=== PATIENT | female | born 1960 | race African-American/Black ===

== ENCOUNTER 2017-07-19 18:04 | Emergency (ER) | payer OTHER ==
[~2017-07-19] VITALS: Ht 160 cm; Wt 74.8 kg
[2017-07-19] MEDS ORDERED: NKM (18:18)
--- NOTE | 2017-07-19 18:47 | Emergency Room Report ---
History of Present Illness General Chief Complaint: Skin Rash/Abscess Source: Patient Present Illness HPI 56 YO Female presents to the ED c/o Itching, swelling, and erythema of site on the UE's, LE's, and posterior neck and sides of the face since yesterday. no cough, no wheezing. denies Fevers, chills, bleeding, joint pain, fatigue. pt. denies new medications, foods, soaps or detergents. pt. denies hx of allergies. pt. denies blisters or sloughing of the skin. pt. denies swelling of the lips, tongue, or airway. denies wheezing, cough, SOB. Denies CP, Palpitations, N/V, or sudden onset CULVER. Allergies: Coded Allergies: No Known Allergies (Unverified , 07/19/17) Patient History Past Medical History: see triage record Past Surgical History: none Pertinent Family History: none Now: No Immunizations: UTD Reviewed Nursing Documentation: PMH: Agreed, PSxH: Agreed Nursing Documentation-PMH Hx Hypertension: Yes Review of Systems All Other Systems: negative except mentioned in HPI Physical Exam Vital Signs Date Time Temp Pulse Resp B/P (MAP) Pulse Ox O2 Delivery O2 Flow Rate FiO2 07/19/17 18:11 98.1 70 154/67 Room Air Sp02 EP Interpretation: reviewed, normal General Appearance: no apparent distress, alert, GCS 15, non-toxic Head: normocephalic, atraumatic Eyes: bilateral eye normal inspection, bilateral eye PERRL ENT: hearing grossly normal, normal pharynx, no angioedema, normal voice, TMs + canals normal, uvula midline, moist mucus membranes, other - no swelling of the lips or tongue. Neck: full range of motion, supple/symm/no masses Respiratory: lungs clear, normal breath sounds, no wheezing, speaking full sentences Cardiovascular #1: regular rate, rhythm Rectal: deferred Musculoskeletal: back normal, gait/station normal, normal range of motion, non- tender Neurologic: alert, oriented x3, responsive, motor strength/tone normal, sensory intact, normal gait, speech normal Psychiatric: judgement/insight normal, memory normal, mood/affect normal Skin: normal color, warm/dry, well hydrated, rash - mulitple 0.3cm erythematous , indurated insect bites with blanching erythema. no crusting, vessicles, or blisters. Lymphatic: no adenopathy Medical Decision Making PA Attestation Dr. Betancur is my supervising Physician whom patient management has been discussed with. Diagnostic Impression: Primary Impression: Insect bite Qualified Codes: W57.XXXA - Bitten or stung by nonvenomous insect and other nonvenomous arthropods, initial encounter ER Course Pt. presents to the ED c/o Itching, swelling, and erythema of site on the UE's , LE's, and posterior neck and sides of the face since yesterday. no cough, no wheezing. Ddx considered but are not limited to cellulitis, scabies, insect bites, tic bites, spider bites, contact dermatitis, Drug reaction, allergic reaction, fungal infection, lice. Vital signs: are WNL, pt. is afebrile H&PE are most consistent with multiple insect bites with localized allergic reaction, no airway compromise, no urticaria, no evidence to suggest anaphylaxis. No evidence of secondary infection. ORDERS: none required at this time, the diagnosis is clinical ED INTERVENTIONS: -d/w pt. conservative treatment, and PMD follow up. Gave pt. ED return precautions for worsening or new symptoms. DISCHARGE: At this time pt. is stable for d/c to home. Will provide printed patient care instructions, and any necessary prescriptions. Care plan and follow up instructions have been discussed with the patient prior to discharge. Last Vital Signs Date Time Temp Pulse Resp B/P (MAP) Pulse Ox O2 Delivery O2 Flow Rate FiO2 07/19/17 18:11 98.1 70 154/67 Room Air Disposition: HOME, SELF-CARE Condition: Stable Scripts Diphenhydramine Hcl (BENADRYL ALLERGY) 25 Mg Tablet 25 MG PO Q6HR, #20 TAB Prov: Ramya Keita 07/19/17 Hydrocortisone (Hydrocortisone Cream 2.5%) Y Cream.appl 1 APPLIC TP BID, #28.3 GM Prov: Ramya Keita 07/19/17 Patient Instructions: Insect Bite Additional Instructions: Take medications as directed. Follow up with a Primary Care Provider in 3-5 days, even if your symptoms have resolved. --Please review list of primary care clinics, if you do not already have a primary care provider Return sooner to ED if new symptoms occur, or current symptoms become worse. Do not drink alcohol, drive, or operate heavy machinery while taking Benadryl as this may cause drowsiness. - Please note that this Emergency Department Report was dictated using [employer] care provider technology software, occasionally this can lead to erroneous entry secondary to interpretation by the dictation equipment. Ramya Keita Jul 19, 2017 18:47
[2017-07-19] MEDS ORDERED: HYDROCORTISONE30 G2 TP (18:48)
[2017-07-19] MEDS ORDERED: BENADRYL ALLERG25 M1 PO (18:48)
[2017-07-19 19:00] VITALS: BP_SYST 151; BP_SYST 154; BP_DIAS 67; BP_DIAS 69
== END 2017-07-19 19:00 | disposition home or self-care (01) ==
LOC: EMR 18:43
DX: S00.86XA Insect bite (nonvenomous) of other part of head, initial encounter (principal); S10.96XA Insect bite of unspecified part of neck, initial encounter; W57.XXXA Bitten or stung by nonvenomous insect and other nonvenomous arthropods, initial encounter; Y93.9 Activity, unspecified; Y92.9 Unspecified place or not applicable; I10 Essential (primary) hypertension
CPT/HCPCS: 99284